=== PATIENT | female | born 1975 | race Caucasian/White ===

== ENCOUNTER 2024-05-16 06:20 | Day surgery (SDC) | payer BC, SELFPAY | END 2024-05-16 09:22 | disposition home or self-care (01) | LOC: GI 06:20 | PROVIDERS: ATTENDING PHYSICIAN Internal Medicine Gastroenterology | DX: Z12.11 Encounter for screening for malignant neoplasm of colon (principal); K64.8 Other hemorrhoids; Z83.719 Family history of colon polyps, unspecified | CPT/HCPCS: G0105 ==

== ENCOUNTER 2025-04-02 14:50 | Emergency (ER) | payer BC, SELFPAY ==
[2025-04-02 15:15] VITALS: BP 130/97
[2025-04-02 15:43] LABS: Hematocrit 40.4 % (37.0-47.0); Hemoglobin 14.2 g/dL (12.0-16.0); Mean Corp Hgb Conc. 35.1 g/dL (33.0-37.0); Mean Corpuscular Volume 89.4 fL (81.0-99.0); Nucleated Red Blood Cells % 0 %; Platelet Count 303 10^3/uL (130-400); Red Cell Dist. Width 12.5 % (11.5-14.5)
[2025-04-02 15:57] LABS: ALT (SGPT) 39 U/L (0-35); AST (SGOT) 34 U/L (14-36); Albumin 5.1 g/dl (3.5-5.0); Alkaline Phosphatase 103 U/L (38-126); Blood Urea Nitrogen 14 mg/dl (7-17); Calcium 9.9 mg/dl (8.4-10.2); Carbon Dioxide 26 mmol/L (22-30); Chloride 103 mmol/L (98-107); Glucose 95 mg/dl (70-99); Potassium 4.4 mmol/L (3.5-5.1); Sodium 138 mmol/L (135-145); Total Protein 8.3 g/dl (6.3-8.2); eGFR > 60.00
[2025-04-02 16:06] LABS: Troponin I < 0.012 ng/ml
--- NOTE | 2025-04-02 18:40 | ED.GENMED ---
History of Present Illness
General
Chief Complaint: Anxiety
Source: patient
Exam Limitations: none
Time Seen by Provider: 04/02/25 18:39
Nursing documentation reviewed up to this point in time: agreed with
History of Present Illness
History of Present Illness:
49 yr old female presents to the ER for evaluation. She reports around 2 PM she was arguing and yelling at home. She went to the other room and sat down to eat and developed right sided head pain. She stood up and fell. She is not sure if she
passed out or simply fell however she does recall falling.
She tells me that her heard her fall and came to help her and at that time she was hyperventilating. She did feel pressure in her chest.
Her called EMS.
She presents tearful and does complain of a right sided headache however denies any chest pain.
She has no cardiac history.
She believes she was having a panic anxiety attack during this episode as well because she is going through a lot of stress with her daughters who have issues right now.
She has no cardiac history.
Phy Exam
General Physical Exam
General Presentation: no apparent distress
General age: appears stated age
General Skin: warm and dry
General Habitus: normal
General Mental: alert
General Hydration: appears well hydrated
Cardiovascular Exam
Cardiovascular Exam: regular rate/rhythm, no murmur and normal peripheral pulses
Pulmonary Exam
Pulmonary Exam: lungs clear and no respiratory distress
Neurological Exam
Neurological Exam: alert and oriented x3
Musculoskeletal Exam
Musculoskeletal Exam: full ROM
Skin Exam
Skin Exam: normal color and warm/dry
Psychiatric Exam
Psychiatric Exam: normal mood/affect
Course
Orders/Labs/Results
Orders:
Orders
04/02/25 15:19
EKG [Electrocardiogram (*1)] Urgent
Reason for Study: Vertigo / Dizzy
04/02/25 15:20
EKG- Treatment ONCE
04/02/25 15:32
Complete Blood Count/With Diff Urgent
Comprehensive Metabolic Panel Urgent
Troponin I Urgent
04/02/25 18:49
Electrocardiogram (*1) Urgent
Reason for Study: Chest Pain
CT Head W/o Iv Contrast Urgent
Comment:
Reason For Exam: right sided headache /fall
EKG- Treatment ONCE
04/02/25 19:04
Troponin I Urgent
04/02/25 20:28
Vital Signs- Treatment ONCE
Frequency: Once
Abnormal Lab Results
04/02/25
15:32
MCH 31.4 H pg
(27.0-31.0)
ALT 39 H U/L
(0-35)
Total Protein 8.3 H g/dl
(6.3-8.2)
Albumin 5.1 H g/dl
(3.5-5.0)
04/02/25 15:32
04/02/25 15:32
Vital Signs
Initial and Last Documented VS:
Initial Vital Signs
Temp Pulse Resp BP Pulse Ox
98.4 F 108 18 130/97 95
04/02/25 15:15 04/02/25 15:15 04/02/25 15:15 04/02/25 15:15 04/02/25 15:15
Last Documented Vital Signs
Temp Pulse Resp BP Pulse Ox
98.4 F 81 18 113/86 98
04/02/25 15:15 04/02/25 20:42 04/02/25 20:42 04/02/25 20:42 04/02/25 20:42
MDM/Problems Addressed
Differential Diagnosis Includes:
Not limited to anxiety panic attack fall, syncope, headache, less likely intracranial hemorrhage less likely ACS
MDM/Problems Addressed:
As documented patient is a 49-year-old female under a lot of family stress at home was arguing and then shortly after developed sharp pain to the right side of her head and she is unsure if she passed out. found her and she was
hyperventilating EMS was called. Patient presents very tearful anxious reports she is under tremendous amount of stress. She has twin daughters who are both going through issues. She does have a headache on exam however has a normal neurological
exam. CT head done and negative. Patient had no acute EKG concerning findings and has had 2 negative cardiac troponins. Patient had no chest pain no cardiac history will DC with outpatient follow-up by family doctor.
Possibly syncope versus fall, anxiety likely related however no acute concerning abnormalities during patient's workup stable for discharge home.
Chronic conditions affecting care:
anxiety
*Radiology
Radiology exam reviewed: radiology read reviewed
*Pulse Oximetry
SaO2: 95
Oxygen Mode of Delivery: Room air
Patient hypoxic: no
*EKG
Interpreted by ED Provider?: Yes
Interpretation: normal
Heart Rate: 96
Rate: normal
Rhythm: sinus
Ischemia: no ischemia
*Critical Care Note
Total Time (30-74mins, 75-104mins- exclusive of procedures): Not Applicable
ED Attending Note
-
Portions of this chart may have been created with voice recognition software.� Occasional wrong word or��sound alike� substitutions may have occurred due to the inherent limitations of voice recognition software.
Discharge Plan
Departure
Patient Disposition: Home (Routine Discharge)
Date of Disposition: 04/02/25
Time of Disposition: 20:28
Patient with high blood pressure during this ER visit?: Yes
Condition: Fair
Discharge Problem:
Fall
Instructions: Anxiety, Adult (DC), Chest Pain PCP Follow Up, BLOOD PRESSURE
Referrals:
UNKNOWN - PT DOES,NOT KNOW [Family Provider]
Activity Restrictions/Additional Instructions:
As discussed it is possible that you had an episode of passing out (syncope) versus fall. This may be anxiety related. Your CAT scan of your brain was negative. Your labs were unremarkable and your EKG was unremarkable.
Please however follow-up with your family doctor in the next 2-3 days for reevaluation of your symptoms. Also please discuss your anxiety with your family doctor.
Interventions
Interventions:
*General Assessment Last Done: 04/02/25 15:15
*Neglect/Abuse Screening Last Done: 04/02/25 15:15
*ED COVID-19 Vaccine History Last Done: 04/02/25 15:15
*ED Influenza Vaccine History Last Done: 04/02/25 15:15
[facility] Risk Assessment Tool Last Done: 04/02/25 20:30
*Risk Screen - Suicide (C-SSRS) Last Done: 04/02/25 15:15
*Nursing Disposition Last Done: 04/02/25 20:48
ED-Psychological Assessment Last Done: 04/02/25 20:28
Discharge Date and Time
Discharge Date/Time: 04/02/25 20:54
Print Language: ARGENT[place]
[2025-04-02 19:37] LABS: Troponin I < 0.012 ng/ml
[2025-04-02 20:42] VITALS: BP 113/86
== END 2025-04-02 20:54 | disposition home or self-care (01) ==
LOC: EMR 14:50
PROVIDERS: Emergency Medicine; Nurse Practitioner; EMERGENCY PHYSICIAN Emergency Medicine
DX: R51.9 Headache, unspecified (principal); W19.XXXA Unspecified fall, initial encounter; F41.9 Anxiety disorder, unspecified; Z63.8 Other specified problems related to primary support group
CPT/HCPCS: 99284; 70450; 80053; 84484; 85025; 93005